=== PATIENT | male | born 1960 | race Caucasian/White ===

== ENCOUNTER → 2025-04-13 06:56 | Outpatient (REF) | payer MEDICARE, BC, SELFPAY | LOC: MRI 3T 06:56 | PROVIDERS: ATTENDING PHYSICIAN Family Medicine Sports Medicine; FAMILY PHYSICIAN Student in an Organized Health Care Education/Training Program | DX: S83.242A Other tear of medial meniscus, current injury, left knee, initial encounter (principal) | CPT/HCPCS: 73721 ==